=== PATIENT | female | born 1985 | race Caucasian/White ===

== ENCOUNTER 2017-12-10 11:23 | Emergency (ER) | payer OTHER ==
[~2017-12-10] VITALS: Ht 162.6 cm; Wt 55.4 kg
[2017-12-10 13:36] LABS: BASOPHILS # (AUTO) 0.03 x10^3/uL (0-0.1); BASOPHILS % (AUTO) 0 % (0-1); EOSINOPHILS # (AUTO) 0.07 x10^3/uL (0-0.4); EOSINOPHILS % (AUTO) 1 % (1-7); LYMPHOCYTES # (AUTO) 1.74 x10^3/uL (1-3.4); LYMPHOCYTES % (AUTO) 21 % (22-44); MD NO; MEAN CORPUSCULAR HEMOGLOBIN 30.4 pg (27.0-34.8); MEAN CORPUSCULAR HGB CONC 34.1 g/dL (32.4-35.8); MEAN CORPUSCULAR VOLUME 89.2 fL (80-100); MEAN PLATELET VOLUME 7.4 fL (7.4-10.4); MONOCYTES # (AUTO) 0.55 x10^3/uL (0.2-0.8); MONOCYTES % (AUTO) 7 % (2-9); NEUTROPHILS # (AUTO) 5.75 x10^3/uL (1.8-6.8); NEUTROPHILS % (AUTO) 71 % (42-75); PLATELET COUNT 298 x10^3/uL (130-400); RED BLOOD COUNT 4.82 x10^6/uL (3.82-5.3); RED CELL DISTRIBUTION WIDTH 13.2 % (9.6-15.2)
[2017-12-10 14:45] LABS: CULTURE INDICATED? YES; MICROSCOPIC INDICATED
[2017-12-10] MEDS ORDERED: RHOGAM FROM BLOOD BANK 1 NOTE EA IM/IV ONE (15:00)
[2017-12-10 15:20] VITALS: BP 115/63
== END 2017-12-10 15:29 | disposition home or self-care (01) ==
LOC: ED 14:06
DX: O20.0 Threatened abortion (principal); O99.281 Endocrine, nutritional and metabolic diseases complicating pregnancy, first trimester; E03.9 Hypothyroidism, unspecified; Z3A.01 Less than 8 weeks gestation of pregnancy
CPT/HCPCS: 36415; 76801; 81001; 84702; 85025; 86850; 86900; 87086; 96372; 99285; J2790

== ENCOUNTER 2018-08-06 06:46 | Inpatient (IN) | payer OTHER ==
[~2018-08-06] VITALS: Ht 162.6 cm; Wt 71.4 kg
[2018-08-06] MEDS ORDERED: LACTATED RINGERS 1,000 ML IV SCH ×2 (07:03→07:38)
[2018-08-06] MEDS ORDERED: D5%-LACTATED RINGERS 1,000 ML IV SCH (07:03)
[2018-08-06] MEDS ORDERED: OXYTOCIN 30U/ 0.9% NaCL 500ML 500 ML IV ONE (07:03)
[2018-08-06] MEDS ORDERED: FENTANYL/BUPIV./NS/PF 250 ML EPIDCONT SCH ×2 (07:09→07:38)
[2018-08-06] MEDS ORDERED: NEWBORN KIT ONE (07:13)
[2018-08-06] MEDS ORDERED: OXYTOCIN 30U/ 0.9% NaCL 500ML 500 ML ONE ×2 (07:13→17:03)
[2018-08-06] MEDS ORDERED: MISOPROSTOL 200 MCG TABLET ONE (07:13)
[2018-08-06] MEDS ORDERED: LIDOCAINE 1%, 20ML ONE (07:13)
[2018-08-06] MEDS ORDERED: FENTANYL PF 100 MCG/2ML ONE (07:27)
[2018-08-06] MEDS ORDERED: ONDANSETRON 2MG/ML, 2ML IVPush PRN (07:30)
[2018-08-06] MEDS ORDERED: CALCIUM CARBONATE 500 MG TAB.CHEW PO PRN (07:30)
[2018-08-06] MEDS ORDERED: TERBUTALINE 1 MG/ML, 1ML IVPush PRN (07:30)
[2018-08-06] MEDS ORDERED: FENTANYL PF 100 MCG/2ML IV PRN (07:30)
[2018-08-06] MEDS ORDERED: FENTANYL PF 100 MCG/2ML IVPush PRN (07:30)
[2018-08-06 07:52] LABS: BASOPHILS # (AUTO) 0.07 x10^3/uL (0-0.1); BASOPHILS % (AUTO) 1 % (0-1); EOSINOPHILS # (AUTO) 0.05 x10^3/uL (0-0.4); EOSINOPHILS % (AUTO) 0 % (1-7); LYMPHOCYTES # (AUTO) 1.21 x10^3/uL (1-3.4); LYMPHOCYTES % (AUTO) 9 % (22-44); MD NO; MEAN CORPUSCULAR HGB CONC 33.5 g/dL (32.4-35.8); MEAN CORPUSCULAR VOLUME 89.6 fL (80-100); MEAN PLATELET VOLUME 7.1 fL (7.4-10.4); MONOCYTES % (AUTO) 7 % (2-9); NEUTROPHILS # (AUTO) 11.28 x10^3/uL (1.8-6.8); NEUTROPHILS % (AUTO) 84 % (42-75); PLATELET COUNT 264 x10^3/uL (130-400); RED BLOOD COUNT 3.87 x10^6/uL (3.82-5.3); RED CELL DISTRIBUTION WIDTH 12.8 % (9.6-15.2)
[2018-08-06] MEDS ORDERED: NALOXONE 0.4 MG/ML, 1ML IVPush PRN (08:00)
[2018-08-06] MEDS ORDERED: EPHEDRINE 50 MG/ML, 1ML IVPush PRN (08:00)
[2018-08-06] MEDS ORDERED: LACTATED RINGERS 1,000 ML IVBOLUS PRN (08:00)
[2018-08-06] MEDS ORDERED: OXYcodone IR 5MG TABLET PO PRN (13:30)
[2018-08-06] MEDS ORDERED: ACETAMINOPHEN 325 MG TABLET PO PRN (13:30)
[2018-08-06] MEDS ORDERED: MISOPROSTOL 200 MCG TABLET PR PRN (13:30)
[2018-08-06] MEDS: OXYTOCIN 30U/ 0.9% NaCL 500ML 500 ML IV SCH ×2 (15:40→17:11)
[2018-08-06 18:43] VITALS: BP 120/72
[2018-08-06] MEDS: IBUPROFEN 600 MG TABLET PO PRN (20:03)
[2018-08-06 20:20] VITALS: BP 107/60
[2018-08-07] VITALS: BP 92/57
[2018-08-07 00:07] LABS: BASOPHILS # (AUTO) 0.05 x10^3/uL (0-0.1); BASOPHILS % (AUTO) 0 % (0-1); EOSINOPHILS # (AUTO) 0.04 x10^3/uL (0-0.4); EOSINOPHILS % (AUTO) 0 % (1-7); LYMPHOCYTES # (AUTO) 1.52 x10^3/uL (1-3.4); LYMPHOCYTES % (AUTO) 9 % (22-44); MD NO; MEAN CORPUSCULAR HEMOGLOBIN 31.1 pg (27.0-34.8); MEAN CORPUSCULAR HGB CONC 34.5 g/dL (32.4-35.8); MEAN CORPUSCULAR VOLUME 90.1 fL (80-100); MEAN PLATELET VOLUME 6.9 fL (7.4-10.4); MONOCYTES # (AUTO) 1.21 x10^3/uL (0.2-0.8); MONOCYTES % (AUTO) 7 % (2-9); NEUTROPHILS # (AUTO) 13.85 x10^3/uL (1.8-6.8); NEUTROPHILS % (AUTO) 83 % (42-75); PLATELET COUNT 250 x10^3/uL (130-400); RED BLOOD COUNT 3.16 x10^6/uL (3.82-5.3); RED CELL DISTRIBUTION WIDTH 13.2 % (9.6-15.2)
[2018-08-07 04:30] VITALS: BP 98/66
[2018-08-07] MEDS: IBUPROFEN 600 MG TABLET PO PRN ×3 (07:39→23:55)
[2018-08-07] MEDS: DOCUSATE 100 MG CAPSULE PO PRN (07:39)
[2018-08-07] MEDS: PRENATAL VIT/IRON/FA 1 EACH TABLET PO SCH (07:40)
[2018-08-07 08:00] VITALS: BP 107/68
[2018-08-07] MEDS: OXYTOCIN 30U/ 0.9% NaCL 500ML 500 ML IV SCH ×2 (09:26→19:26)
[2018-08-07 12:21] VITALS: BP 100/73
[2018-08-07 16:00] VITALS: BP 102/63
[2018-08-07 19:50] VITALS: BP 108/72
[2018-08-08] MEDS: OXYTOCIN 30U/ 0.9% NaCL 500ML 500 ML IV SCH ×2 (05:26→13:20)
[2018-08-08] MEDS: DOCUSATE 100 MG CAPSULE PO PRN (07:59)
[2018-08-08] MEDS: IBUPROFEN 600 MG TABLET PO PRN (07:59)
[2018-08-08 08:00] VITALS: BP 106/58
[2018-08-08] MEDS: PRENATAL VIT/IRON/FA 1 EACH TABLET PO SCH (08:00)
[2018-08-08] MEDS ORDERED: HYDR-3240 PO (11:30)
[2018-08-08] MEDS ORDERED: IBUP200T49 PO (11:31)
== END 2018-08-08 15:45 | disposition home or self-care (01) | DRG 807 ==
LOC: LDOP 06:46 → LDIP 07:19 → 2NW 18:00
PROVIDERS: ADMIT Obstetrics & Gynecology Gynecology; ATTEND Obstetrics & Gynecology Gynecology
PROC: 0KQM0ZZ Repair Perineum Muscle, Open Approach (ICD-10-PCS; principal; 2018-08-06)
PROC: 10E0XZZ Delivery of Products of Conception, External Approach (ICD-10-PCS; 2018-08-06)
PROC: 3E0R3BZ Introduction of Anesthetic Agent into Spinal Canal, Percutaneous Approach (ICD-10-PCS; 2018-08-06)
PROC: 00HU33Z Insertion of Infusion Device into Spinal Canal, Percutaneous Approach (ICD-10-PCS; 2018-08-06)
DX: O99.284 Endocrine, nutritional and metabolic diseases complicating childbirth (principal); Z37.0 Single live birth; Z82.49 Family history of ischemic heart disease and other diseases of the circulatory system; O70.1 Second degree perineal laceration during delivery; E03.9 Hypothyroidism, unspecified; Z3A.38 38 weeks gestation of pregnancy; Z88.8 Allergy status to other drugs, medicaments and biological substances
CPT/HCPCS: 36415; 85025; 86850; 86900; G0378; J3010; J2590; J7120